=== PATIENT | female | born 1975 | race Caucasian/White ===

== ENCOUNTER 2017-03-29 09:00 | Day surgery (SDC) | payer MEDICAID ==
--- NOTE | 2017-03-29 10:34 | CP.SDSHP ---
Same Day Surgery H & P - History Proposed Procedure: US guided FNA of left thyroid mass Pre-Op Diagnosis: left thyroid mass - Physical Exam Mental Status: Alert & Oriented x3 Neuro: WNL Heart: WNL - Impression Impression: PT with mass occupying most of left thyroid. Plan left thyroid mass. Pt. Evaluated Today:Candidate for Anesthesia & Procedure: No - Date & Time Date: 03/29/17 Time: 10:00 Short Stay Discharge - Short Stay Discharge Admitting Diagnosis/Reason for Visit: BIOPSY Disposition: HOME/ ROUTINE
[2017-03-29 10:36] VITALS: BMI 23.9
--- NOTE | 2017-03-29 10:36 | PCM.SURG1 ---
Surgeon's Initial Post Op Note - Surgeon's Notes Surgeon: Von Stanford MD Prosthodontist/Owner: NONE Type of Anesthesia: Local Pre-Operative Diagnosis: left thyroid mass Operative Findings: Mass occupying most of left thyroid. Post-Operative Diagnosis: left thyroid mass Operation Performed: US guided FNA of left thyroid mass Specimen/Specimens Removed: 25 g FNA x 5 passes Estimated Blood Loss: EBL {In ML}: 1 Blood Products Given: N/A Drains Used: No Drains Post-Op Condition: Good Date of Surgery/Procedure: 03/29/17 Time of Surgery/Procedure: 10:25
--- NOTE | 2017-03-30 12:39 | US ---
PROCEDURE: Date of Procedure: 03/29/2017 PROCEDURE: 1. Ultrasound guided FNA of left thyroid nodule, CPT 93459 2. Ultrasound guidance for FNA, 76990 Medications: 3cc 1% Lidocaine HISTORY: Enlarged left thyroid mass. TECHNIQUE: Following informed consent and procedure time-out, a limited ultrasound patient's neck confirmed the presence of a large complex left thyroid nodule measuring 2.8 centimeters. The left thyroid nodule which is predominantly solid. After the patient's neck was prepped and draped in the usual sterile fashion, the skin was anesthetized with 1% lidocaine. Ultrasound-guided fine needle aspiration was then performed of the dominant left thyroid nodule. A total of 4 passes were made into the nodule with 25 gauge needle under ultrasound guidance. The FNA specimen was sent for routine pathology. Post biopsy ultrasound showed no hematoma. IMPRESSION: Ultrasound-guided FNA of the dominant left thyroid nodule.
== END 2017-03-29 12:30 | disposition home or self-care (01) ==
LOC: C.CATHLAB 09:00
PROVIDERS: ATTEND Radiology Vascular & Interventional Radiology
DX: E04.1 Nontoxic single thyroid nodule (principal)

== ENCOUNTER 2017-04-02 18:40 | Emergency (ER) | payer MEDICAID ==
[2017-04-02 18:51] VITALS: BMI 25.4
[2017-04-02 18:55] VITALS: RESP 18; TEMP 99.7
[2017-04-02] MEDS ORDERED: guaiFENesin 100 mg/5 ml Syrup UD PO STA (20:34)
--- NOTE | 2017-04-02 20:35 | C.PDOC ---
History Of Present Illness 41 year old female presents to the ER with a complaint of cough, coryza, congestion, and sore throat that began earlier today. Patient reports having a 3 year old baby at home and notes she took one tylenol tablet this morning. Denies sick contact. Time Seen by Provider: 04/02/17 20:24 Chief Complaint (Nursing): Fever History Per: Patient History/Exam Limitations: no limitations Onset/Duration Of Symptoms: Hrs Location Of Pain: Throat Sick Contacts (Context): None Associated Symptoms: Sore Throat, Cough, Nasal Congestion, Other (coryza) Ear Symptoms: Bilateral: None Recent travel outside of the [place]: No Past Medical History Reviewed: Historical Data, Nursing Documentation, Vital Signs Vital Signs: Last Vital Signs Temp 99.7 F H 04/02/17 18:51 Pulse 114 H 04/02/17 18:51 Resp 18 04/02/17 18:51 BP 163/77 H 04/02/17 18:51 Pulse Ox 99 04/02/17 20:35 Family History: States: Unknown Family Hx - Social History Hx Alcohol Use: No Hx Substance Use: No - Immunization History Hx Tetanus Toxoid Vaccination: No Hx Influenza Vaccination: No Hx Pneumococcal Vaccination: No Review Of Systems Constitutional: Negative for: Fever, Chills ENT: Positive for: Nose Congestion, Throat Pain, Other (coryza) Respiratory: Positive for: Cough Physical Exam - Physical Exam Appears: Non-toxic, No Acute Distress Skin: Normal Color, Warm, Dry Head: Atraumatic, Normacephalic Eye(s): bilateral: Normal Inspection Ear(s): Bilateral: Normal Nose: Normal Oral Mucosa: Moist Throat: Normal, No Erythema, No Exudate Neck: Normal, Supple Chest: Symmetrical, No Tenderness Cardiovascular: Rhythm Regular Respiratory: Normal Breath Sounds, No Rales, No Rhonchi, No Wheezing Gastrointestinal/Abdominal: Soft, No Tenderness Neurological/Psych: Oriented x3, Normal Speech ED Course And Treatment O2 Sat by Pulse Oximetry: 99 (Room air) Pulse Ox Interpretation: Normal Medical Decision Making Medical Decision Making: typical influenza s/s . treat empirically Disposition Doctor Will See Patient In The: Office Counseled Patient/Family Regarding: Studies Performed, Diagnosis - Disposition Referrals: Michell Rob MD [Staff Provider] - Disposition: HOME/ ROUTINE Disposition Time: 20:35 Condition: GOOD Additional Instructions: Tamiflu 75 mg twice a day for 5 days Motrin 4000-600 mg every 6 hours as needed for body aches/fevers Tylenol 1000 mg every 6 hours as needed for fever/body aches. Dayquil and Nyquil (or non-name brand equivalent) liberally per product instructions Ask your ios programmer to prescribe Tamiflu for your 3 y/o baby prophylactically. Follow-up with your PMD as needed. Prescriptions: Oseltamivir [Tamiflu] 75 mg PO BID #9 cap Instructions: Flu, Adult (DC) Forms: [employer] (Slovenian) - Clinical Impression Clinical Impression: Influenza-like illness - Scribe Statement The provider has reviewed the documentation as recorded by the Scribe Malik Serrano All medical record entries made by the Scribe were at my direction and personally dictated by me. I have reviewed the chart and agree that the record accurately reflects my personal performance of the history, physical exam, medical decision making, and the department course for this patient. I have also personally directed, reviewed, and agree with the discharge instructions and disposition.
[2017-04-02] MEDS ORDERED: guaiFENesin 100 mg/5 ml Syrup UD ONE (20:46)
[2017-04-02 20:55] VITALS: BP 117/74; PULSE 104; O2SAT 96
== END 2017-04-02 20:56 | disposition home or self-care (01) ==
LOC: C.ER 18:40
DX: J11.1 Influenza due to unidentified influenza virus with other respiratory manifestations (principal)

== ENCOUNTER 2017-04-14 08:54 | Day surgery (SDC) | payer MEDICAID ==
[2017-04-14 13:06] VITALS: BP 100/70; PULSE 78; RESP 18; TEMP 97; O2SAT 100
--- NOTE | 2017-04-18 12:41 | CP.SDSHP ---
Same Day Surgery H & P - History Proposed Procedure: US guided FNA of left thyroid nodule Pre-Op Diagnosis: left thyroid nodule - Allergies Allergies: Allergies No Known Allergies Allergy (Verified 04/02/17 18:50) - Impression Impression: Pt with 2.5 cm solid left thyroid nodule. Plan US guided FNA. Pt. Evaluated Today:Candidate for Anesthesia & Procedure: No - Date & Time Date: 04/14/17 Time: 11:45 Short Stay Discharge - Short Stay Discharge Admitting Diagnosis/Reason for Visit: E04.1-THYROID BIOPSY Disposition: HOME/ ROUTINE
--- NOTE | 2017-04-18 12:42 | PCM.SURG1 ---
Surgeon's Initial Post Op Note - Surgeon's Notes Surgeon: Von Stanford MD Assurance Services Manager Health Care: NONE Type of Anesthesia: Local Pre-Operative Diagnosis: left thyroid nodule Operative Findings: 2.5 cm solid left thyroid nodule Post-Operative Diagnosis: left thyroid nodule Operation Performed: US guided FNA of left thyroid nodule. 5 passes made into the nodule with a 25 g needle under US guidance. Patholgy reviewed specimen and it was adequate. Specimen/Specimens Removed: 25 g FNA x 5 Estimated Blood Loss: EBL {In ML}: 0 Blood Products Given: N/A Drains Used: No Drains Post-Op Condition: Good Date of Surgery/Procedure: 04/14/17 Time of Surgery/Procedure: 12:00
--- NOTE | 2017-04-18 12:50 | US ---
Date of Procedure: 04/14/2017 PROCEDURE: 1. Ultrasound guided FNA of left thyroid nodule, CPT 40106 2. Ultrasound guidance for FNA, 93020 Medications: 3cc 1% Lidocaine HISTORY: Enlarged left thyroid mass, inadequate previous biopsy, repeat biopsy TECHNIQUE: Following informed consent and procedure time-out, a limited ultrasound patient's neck confirmed the presence of a large complex left thyroid nodule measuring 2.8 centimeters. The left thyroid nodule which is predominantly solid. After the patient's neck was prepped and draped in the usual sterile fashion, the skin was anesthetized with 1% lidocaine. Ultrasound-guided fine needle aspiration was then performed of the dominant left thyroid nodule. A total of 4 passes were made into the nodule with 25 gauge needle under ultrasound guidance. The FNA specimen was sent for routine pathology. Post biopsy ultrasound showed no hematoma. IMPRESSION: Ultrasound-guided FNA of the dominant left thyroid nodule. Five passes were made into the nodule with 25 gauge needle. The specimen was reviewed by the pathologist for adequacy and was deemed to be adequate.
== END 2017-04-14 13:08 | disposition home or self-care (01) ==
LOC: C.SPRAD 08:54
PROVIDERS: ATTEND Radiology Vascular & Interventional Radiology
DX: E04.1 Nontoxic single thyroid nodule (principal)